=== PATIENT | male | born 1955 | race Caucasian/White ===

== ENCOUNTER 2020-04-13 05:10 | Inpatient (IN) ==
[2020-04-13] MEDS ORDERED: ASPIRIN 325 MG TABLET PO STA (05:26)
[2020-04-13] MEDS ORDERED: MORPHINE 4 MG/1 ML VIAL IV STA ×2 (05:33→06:33)
[2020-04-13] MEDS ORDERED: NITROGLYCERIN 2% OINT 1 INCH/GM PACK TOP STA (05:33)
[2020-04-13] MEDS ORDERED: ONDANSETRON 4 MG/2 ML VIAL IV ONE (05:33)
[2020-04-13 06:03] LABS: Basophils # 0.1 10*3/uL (0.0-0.2); Basophils % 0.6 % (0.0-0.8); Eosinophils # 0.2 10*3/uL (0.0-0.87); Eosinophils % 2.2 % (0.00-10.9); Hematocrit 56.7 VOL% (42.0-52.0); Hemoglobin 18.8 GM/DL (14.0-18.0); Immature Granulocytes % 0.9 %; Immature Granulocytes Absolute 0.08 #; Lymphocytes # 2.1 10*3/uL (1.4-4.0); Lymphocytes % 24.1 % (21.2-54.2); Mean Corpuscular HGB Conc 33.2 GM/DL (32-36); Mean Corpuscular Volume 91.2 FL (87-102); Mean Platelet Volume 10.1 FL (9.6-12.0); Neutrophils % 62.2 % (38.7-73.9); Platelet Count 192 T/CUMM (130-400); Red Blood Count 6.22 MC/CUMM (3.8-5.5); Red Cell Distribution Width 13.1 % (9.3-17.3); White Blood Count 8.8 T/CUMM (4-12)
[2020-04-13 06:24] LABS: Albumin 3.6 G/DL (3.4-5.0); Bilirubin,Total 0.6 MG/DL (0.2-1.0); Calcium 8.8 MG/DL (8.5-10.1); Osmolality,Calculated 284.4 MOS/KG (273-304)
[2020-04-13] MEDS ORDERED: ACETAMINOPHEN 325 MG TABLET PO PRN (07:37)
[2020-04-13] MEDS ORDERED: ONDANSETRON 4 MG/2 ML VIAL IV PRN (07:37)
[2020-04-13] MEDS ORDERED: hydrALAZINE 20 MG/1 ML VIAL IV PRN (07:37)
[2020-04-13] MEDS ORDERED: DOCUSATE SODIUM 100 MG CAPSULE PO PRN (07:37)
[2020-04-13] MEDS ORDERED: SODIUM CHLORIDE 0.45% 1,000 ML IV SCH (08:00)
[2020-04-13] MEDS ORDERED: ENOXAPARIN 150 MG/ML SYRINGE SUBCUT SCH (08:00)
[2020-04-13] MEDS ORDERED: HEPARIN/NACL 0.9% 2 UNITS/ML 1,000 ML IV ONE (08:16)
[2020-04-13] MEDS ORDERED: LIDOCAINE 1%/EPI INJ 20 ML VIAL ONE (08:16)
[2020-04-13] MEDS ORDERED: MIDAZOLAM 2 MG/2 ML VIAL ONE (08:17)
[2020-04-13] MEDS ORDERED: fentaNYL 100 MCG/2 ML VIAL ONE (08:17)
[2020-04-13] MEDS ORDERED: ENOXAPARIN 120 MG/0.8 ML SYRINGE SUBCUT ONE (08:18)
[2020-04-13 08:19] LABS: Risk Ratio 4.34
[2020-04-13] MEDS ORDERED: LIDOCAINE 1% 20 ML VIAL ONE (08:21)
[2020-04-13] MEDS ORDERED: DIAZEPAM 5 MG TABLET PO ONE (08:27)
[2020-04-13] MEDS ORDERED: POTASSIUM CHLORIDE RIDER 10 MEQ in PREMIX 1 EACH IV PRN (08:27)
[2020-04-13] MEDS ORDERED: diphenhydrAMINE CAP 25 MG CAPSULE PO ONE (08:27)
[2020-04-13] MEDS ORDERED: MAGNESIUM SULF RIDER 2 GM in PREMIX 1 EACH IV PRN ×2 (08:27→10:14)
[2020-04-13] MEDS ORDERED: VERAPAMIL 5 MG/2 ML VIAL ONE (08:51)
[2020-04-13] MEDS ORDERED: NITROGLYCERIN DRIP 50 MG/250 ML BOTTLE IV ONE (08:51)
[2020-04-13] MEDS ORDERED: ENOXAPARIN 60 MG/0.6 ML SYRINGE ONE ×2 (08:58→08:59)
[2020-04-13] MEDS ORDERED: PANTOPRAZOLE 40 MG TABLET PO SCH (09:00)
[2020-04-13] MEDS ORDERED: DICLOFENAC SODIUM 75 MG TABLET PO SCH (09:00)
[2020-04-13] MEDS ORDERED: TIROFIBAN 5,000 MCG/100 ML PREMIX IV ONE (09:09)
[2020-04-13] MEDS ORDERED: NITROGLYCERIN SL 0.4 MG TABLET SL PRN (09:13)
[2020-04-13] MEDS ORDERED: TICAGRELOR 90 MG TABLET ONE (09:17)
[2020-04-13] MEDS ORDERED: ASPIRIN EC 325 MG TABLET PO PRN (10:13)
[2020-04-13] MEDS ORDERED: AZELASTINE NASAL 137 MCG/SPRAY 30 ML BOTTLE BOTH NARES PRN (10:13)
[2020-04-13] MEDS ORDERED: POTASSIUM CHLORIDE 20 MEQ TABLET PO PRN (10:14)
[2020-04-13] MEDS: TAMSULOSIN 0.4 MG CAPSULE PO SCH (11:08)
[2020-04-13] MEDS: MULTIVITAMIN (OCUVITE) TABLET PO SCH (11:31)
[2020-04-13] MEDS: hydroCHLOROthiazide 25 MG TABLET PO SCH (11:31)
[2020-04-13] MEDS: PANTOPRAZOLE 40 MG TABLET PO SCH ×2 (11:32→22:13)
[2020-04-13] MEDS: POTASSIUM CHLORIDE 20 MEQ TABLET PO SCH (11:32)
[2020-04-13] MEDS: MONTELUKAST 10 MG TABLET PO SCH (11:32)
[2020-04-13] MEDS: METOPROLOL SUCCINATE XL 50 MG TABLET PO SCH (13:37)
[2020-04-13] MEDS ORDERED: ASPIRIN EC 81 MG TABLET PO SCH (21:00)
[2020-04-13] MEDS: ASPIRIN EC 81 MG TABLET PO SCH (22:13)
[2020-04-13] MEDS: rOPINIRole 1 MG TABLET PO SCH (22:13)
[2020-04-13] MEDS: MORPHINE 4 MG/1 ML VIAL IV PRN (22:14)
[2020-04-14] MEDS: MORPHINE 4 MG/1 ML VIAL IV PRN ×3 (03:33→23:19)
[2020-04-14 05:02] LABS: Basophils % 0.2 % (0.0-0.8); Eosinophils # 0.1 10*3/uL (0.0-0.87); Eosinophils % 0.4 % (0.00-10.9); Hematocrit 49.7 VOL% (42.0-52.0); Hemoglobin 16.6 GM/DL (14.0-18.0); Immature Granulocytes % 0.3 %; Immature Granulocytes Absolute 0.04 #; Lymphocytes # 1.7 10*3/uL (1.4-4.0); Lymphocytes % 12.8 % (21.2-54.2); Mean Corpuscular HGB Conc 33.4 GM/DL (32-36); Mean Platelet Volume 10.2 FL (9.6-12.0); Monocytes % 9.6 % (1.7-12.7); Neutrophils % 76.7 % (38.7-73.9); Platelet Count 161 T/CUMM (130-400); Red Blood Count 5.46 MC/CUMM (3.8-5.5); White Blood Count 13.6 T/CUMM (4-12)
[2020-04-14 05:24] LABS: CKMB % 9.8 %
[2020-04-14 05:36] LABS: Calcium 8.3 MG/DL (8.5-10.1); Osmolality,Calculated 275.8 MOS/KG (273-304)
[2020-04-14 05:52] LABS: Troponin I 31.4 NG/ML (0.00-0.045)
[2020-04-14] MEDS: MONTELUKAST 10 MG TABLET PO SCH (09:14)
[2020-04-14] MEDS: hydroCHLOROthiazide 25 MG TABLET PO SCH (09:14)
[2020-04-14] MEDS: ATORVASTATIN 80 MG TABLET PO SCH (09:14)
[2020-04-14] MEDS: TICAGRELOR 90 MG TABLET PO SCH ×2 (09:14→20:56)
[2020-04-14] MEDS: PANTOPRAZOLE 40 MG TABLET PO SCH ×2 (09:15→20:56)
[2020-04-14] MEDS: POTASSIUM CHLORIDE 20 MEQ TABLET PO SCH (09:15)
[2020-04-14] MEDS: METOPROLOL SUCCINATE XL 50 MG TABLET PO SCH (09:15)
[2020-04-14] MEDS: MULTIVITAMIN (OCUVITE) TABLET PO SCH (09:15)
[2020-04-14] MEDS: TAMSULOSIN 0.4 MG CAPSULE PO SCH (09:18)
[2020-04-14 10:01] LABS: Apearance,Urine CLEAR (Clear); Bilirubin,Urine Negative (Negative); Blood, Urine Negative (Negative); Glucose,Urine (UA) Negative (Negative); Ketones,Urine Negative (Negative); Mucus,Urine Occasional /LPF (Occasional); Nitrite,Urine Negative (Negative); Protein,Urine Negative; RBC,Urine <1 /HPF (0-4); Urine Color Yellow (Yellow); WBC,Urine <1 /HPF (0-6)
[2020-04-14 12:07] LABS: CKMB % 7.1 %
[2020-04-14 12:08] LABS: Troponin I 19.4 NG/ML (0.00-0.045)
[2020-04-14] MEDS: ASPIRIN EC 81 MG TABLET PO SCH (20:56)
[2020-04-14] MEDS: rOPINIRole 1 MG TABLET PO SCH (20:56)
[2020-04-15 05:47] LABS: Basophils % 0.4 % (0.0-0.8); Eosinophils # 0.2 10*3/uL (0.0-0.87); Eosinophils % 1.9 % (0.00-10.9); Hematocrit 52.3 VOL% (42.0-52.0); Hemoglobin 17.9 GM/DL (14.0-18.0); Immature Granulocytes % 0.6 %; Immature Granulocytes Absolute 0.05 #; Lymphocytes # 1.9 10*3/uL (1.4-4.0); Lymphocytes % 21.1 % (21.2-54.2); Mean Corpuscular HGB Conc 34.2 GM/DL (32-36); Mean Corpuscular Volume 89.6 FL (87-102); Mean Platelet Volume 10.3 FL (9.6-12.0); Platelet Count 166 T/CUMM (130-400); Red Blood Count 5.84 MC/CUMM (3.8-5.5); Red Cell Distribution Width 13.2 % (9.3-17.3)
[2020-04-15 06:06] LABS: Calcium 8.8 MG/DL (8.5-10.1)
[2020-04-15 06:10] LABS: CKMB % 2.8 %
[2020-04-15 06:30] LABS: Troponin I 9.35 NG/ML (0.00-0.045)
[2020-04-15] MEDS ORDERED: ATORVASTATIN 40 MG TABLET PO SCH (07:41)
[2020-04-15 08:30] VITALS: BP 137/78
[2020-04-15] MEDS: TICAGRELOR 90 MG TABLET PO SCH (09:46)
[2020-04-15] MEDS: ATORVASTATIN 80 MG TABLET PO SCH (09:46)
[2020-04-15] MEDS: PANTOPRAZOLE 40 MG TABLET PO SCH (09:46)
[2020-04-15] MEDS: hydroCHLOROthiazide 25 MG TABLET PO SCH (09:46)
[2020-04-15] MEDS: MULTIVITAMIN (OCUVITE) TABLET PO SCH (09:46)
[2020-04-15] MEDS: METOPROLOL SUCCINATE XL 50 MG TABLET PO SCH (09:47)
[2020-04-15] MEDS: POTASSIUM CHLORIDE 20 MEQ TABLET PO SCH (09:47)
[2020-04-15] MEDS: TAMSULOSIN 0.4 MG CAPSULE PO SCH (09:47)
[2020-04-15] MEDS: MONTELUKAST 10 MG TABLET PO SCH (09:47)
[2020-04-17] MEDS ORDERED: ATORVASTATIN 40 MG TABLET PO SCH (07:41)
== END 2020-04-15 11:55 | disposition home or self-care (01) | DRG 247 ==
LOC: N.ED 05:10 → N.EDINP 05:10 → N.TELEN 13:17
PROVIDERS: ADMIT Family Medicine; ATTEND Family Medicine
PROC: CLCCHCL (ICD-10-PCS; 2020-04-13 08:45)